=== PATIENT | male | born 1990 | race Caucasian/White ===

== ENCOUNTER 2023-12-04 11:42 | Emergency (ER) | payer SELFPAY ==
[~2023-12-04] VITALS: Ht 175.3 cm; Wt 96.2 kg
[2023-12-04] MEDS ORDERED: OMEPRAZOLE20 MG PO (11:59)
[2023-12-04] MEDS ORDERED: TUMS200 MG PO (11:59)
[2023-12-04 12:27] LABS: BASOPHILS 0.6 % (0-2); EOSINOPHILS 0.7 % (0-6); HEMATOCRIT 45.3 % (35.0-50.0); HEMOGLOBIN 15.5 g/dL (12.0-18.0); LYMPHOCYTES 27.1 % (24-44); MCHC 34.3 g/dl (30-36); MCV 90.3 fl (81-99); MONOCYTES 5.3 % (0-12); NEUTROPHILS 66.3 % (39-80); PLATELET COUNT 318 K/uL (140-440); RBC 5.02 M/ul (4.3-5.7); RDW 13.5 (10.5-15.0)
[2023-12-04] MEDS ORDERED: PANTOPRAZOLE SODIUM 40 MG/10 ML VIAL IV ONE (12:30)
[2023-12-04] MEDS ORDERED: SODIUM CHLORIDE 0.9% 1,000 ML IV ONE (12:30)
[2023-12-04] MEDS ORDERED: ondansetron HCL 4 MG/2 ML VIAL IV ONE (12:30)
[2023-12-04 12:37] LABS: ALBUMIN 4.2 g/dL (3.4-5.0); ALBUMIN/GLOBULIN RATIO 1.11 (1.1-2.4); ANION GAP 11.9 (7-21); BILIRUBIN, TOTAL 0.3 ng/dL (0.2-1.0); BUN/CREATININE RATIO 14.28 (6.0-28.6); CALCIUM 9.2 mg/dL (8.5-10.1); CREATININE, SERUM 1.05 mg/dL (0.70-1.30); POTASSIUM 3.9 mmol/L (3.5-5.1)
[2023-12-04] MEDS ORDERED: OMEPRAZOLE40 MG PO (13:43)
[2023-12-04] MEDS ORDERED: ONDANSETRON ODT8 MG PO (13:43)
[2023-12-04] MEDS ORDERED: CARAFATE1 GM PO (13:43)
[2023-12-04 13:57] VITALS: BP 131/94
== END 2023-12-04 14:10 | disposition home or self-care (01) ==
LOC: ED 11:42
PROVIDERS: Emergency Medicine
DX: K21.9 Gastro-esophageal reflux disease without esophagitis (principal); K29.71 Gastritis, unspecified, with bleeding; Z79.899 Other long term (current) drug therapy
CPT/HCPCS: 36415; 80053; 83690; 85025; 96361; 96374; 96375; 99284-25; C9113; J2405; J7030